=== PATIENT | female | born 1955 | race Caucasian/White ===

== ENCOUNTER 2019-01-26 20:54 | Inpatient (IN) | payer MEDICARE, OTHER ==
[2019-01-26] MEDS ORDERED: Ondansetron 4 MG/2 ML SDV IVPUSH ONE (21:37)
[2019-01-26] MEDS ORDERED: LORazepam 2 MG/ML SDV IVPUSH ONE (21:42)
--- NOTE | 2019-01-26 21:42 | EDM.PDOC ---
ED HPI GENERAL MEDICAL PROBLEM - General Chief Complaint: Gastrointestinal Problem Stated Complaint: VOMTING, WEAK Time Seen by Provider: 01/26/19 21:38 Source of Information: Reports: Patient History Limitations: Reports: No Limitations - History of Present Illness INITIAL COMMENTS - FREE TEXT/NARRATIVE: pt arrived with a history of vomiting continuously for the pat 24 hours. She is very weak and shakey. She is having alot of anxiety. She did not have any loose stools. She did have a bm last nite that was normal colored. She is thinking she may have eaten something thaat caused the vomiting. She did go out to eat last nite. She had a popover, chicken and a salad. Onset: Other ( started last nite and it was continuous during the nite. ) Duration: Hour(s): Location: Reports: Abdomen, Other ( she is not having abdomanal pain. ) Associated Symptoms: Reports: Nausea/Vomiting, Other (pt is very hyper and is shakey. 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: Endocrine/Metabolic History: Reports: Other (See Below) Other Endocrine/Metabolic History: "high blood sugar when gets sick." - Past Surgical History HEENT Surgical History: Reports: Cataract Surgery Social & Family History - Tobacco Use Smoking Status *Q: Never Smoker - Caffeine Use Caffeine Use: Reports: None - Recreational Drug Use Recreational Drug Use: No ED ROS GENERAL - Review of Systems Review Of Systems: See Below Constitutional: Reports: Weakness, Fatigue, Diaphoresis, Other (pt has been vomiting) HEENT: Reports: No Symptoms Respiratory: Reports: Shortness of Breath, Other (pt is feeling very anxious. ) Cardiovascular: Reports: No Symptoms Endocrine: Reports: No Symptoms GI/Abdominal: Reports: Other (pt does not have abdomanal pain. ) : Reports: No Symptoms Musculoskeletal: Reports: Hand Pain Skin: Reports: No Symptoms Neurological: Reports: No Symptoms, Other (pt is very shakey and is anxious. ) ED EXAM, GI/ABD - Physical Exam Exam: See Below Text/Narrative:: pt arrived with a history of being very weak. She has vomited since last pm. She did have some abdomanal cramping at first but is not having pain at this time. pt is very shakey and is feeling very weak. Exam Limited By: No Limitations General Appearance: Alert, Anxious, Moderate Distress, Other (pt is shakey and is feeling terrible. ) Ears: Normal TMs Nose: Normal Inspection Throat/Mouth: Normal Inspection Head: Atraumatic Neck: Normal Inspection Respiratory/Chest: No Respiratory Distress, Other (pt does have resp of 24. ) Cardiovascular: Regular Rate, Rhythm, Tachycardia GI/Abdominal Exam: Soft, Non-Tender (Female) Exam: Deferred Rectal (Female) Exam: Deferred Back Exam: Normal Inspection Extremities: Normal Inspection Neurological: Alert, Oriented, Normal Cognition, Other ( very anxious appearing. ) Psychiatric: Anxious Course - Vital Signs Last Recorded V/S: Last Vital Signs Temp 36.6 C 01/29/19 15:40 Pulse 76 01/29/19 15:40 Resp 16 01/29/19 15:40 BP 142/68 H 01/29/19 15:40 Pulse Ox 95 01/29/19 15:40 - Orders/Labs/Meds Orders: Medication Orders Dextrose (Glutose 15) 15 gm PO ONETIME PRN PRN Reason: Hypoglycemia Dextrose/Water (Dextrose 50% In Water) 50 ml IV ONETIME PRN PRN Reason: Hypoglycemia Enoxaparin Sodium (Lovenox) 40 mg SUBCUT DAILY [facility] Last Admin: 01/29/19 09:24 Dose: 40 mg Admin: 01/28/19 08:16 Dose: 40 mg Admin: 01/27/19 10:46 Dose: 40 mg Ceftriaxone Sodium 1 gm/ (Sodium Chloride) 50 mls @ 100 mls/hr IV Q24H [facility] Last Admin: 01/29/19 08:40 Dose: 100 mls/hr Insulin Glargine (Lantus Solostar) 12 units SUBCUT BEDTIME [facility] Insulin Human Lispro (Humalog) 0 unit SUBCUT QIDACANDBED [facility]; Protocol Lactobacillus Rhamnosus (Culturelle) 1 cap PO BID [facility] Last Admin: 01/29/19 09:24 Dose: 1 cap Lorazepam (Ativan) 0.5 mg IVPUSH Q2H PRN PRN Reason: Nausea Last Admin: 01/29/19 14:21 Dose: 0.5 mg Admin: 01/29/19 05:37 Dose: 0.5 mg Admin: 01/28/19 17:02 Dose: 0.5 mg Admin: 01/28/19 14:36 Dose: 0.5 mg Admin: 01/28/19 09:04 Dose: 0.5 mg Admin: 01/27/19 12:58 Dose: 0.5 mg Metformin HCl (Glucophage) 1,000 mg PO BIDMEALS [facility] Last Admin: 01/29/19 17:50 Dose: 1,000 mg Ondansetron HCl (Zofran) 4 mg IVPUSH Q4H PRN PRN Reason: Nausea/Vomiting Last Admin: 01/29/19 11:25 Dose: 4 mg Admin: 01/29/19 03:43 Dose: 4 mg Admin: 01/28/19 13:35 Dose: 4 mg Admin: 01/28/19 08:41 Dose: 4 mg Admin: 01/27/19 20:09 Dose: 4 mg Admin: 01/27/19 11:12 Dose: 4 mg Pantoprazole Sodium (Protonix) 40 mg PO BIDAC [facility] Last Admin: 01/29/19 17:50 Dose: 40 mg Admin: 01/29/19 08:22 Dose: Admin: 01/28/19 16:25 Dose: Not Given Admin: 01/28/19 08:15 Dose: 40 mg Admin: 01/27/19 16:30 Dose: 40 mg Sucralfate (Carafate) 1 gm PO QIDACANDBED [facility] Last Admin: 01/29/19 17:49 Dose: 1 gm Tamsulosin HCl (Flomax) 0.4 mg PO PCBREAKFAST [facility] Last Admin: 01/29/19 09:54 Dose: 0.4 mg Labs: Laboratory Tests 01/26/19 01/26/19 01/26/19 Range/Units 21:24 21:24 22:03 WBC 14.2 H (4.5-11.0) K/uL RBC 4.48 (3.30-5.50) M/uL Hgb 13.8 (12.0-15.0) g/dL Hct 42.3 (36.0-48.0) % MCV 94 (80-98) fL MCH 31 (27-31) pg MCHC 33 (32-36) % Plt Count 250 (150-400) K/uL Neut % (Auto) 90 H (36-66) % Lymph % (Auto) 7 L (24-44) % [place] % (Auto) 3 (2-6) % Eos % (Auto) 0 L (2-4) % Baso % (Auto) 0 (0-1) % VBG pH (7.350-7.450) Sodium 128 L (140-148) mmol/L Potassium 4.9 (3.6-5.2) mmol/L Chloride 89 L (100-108) mmol/L Carbon Dioxide 13 L (21-32) mmol/L Anion Gap 30.9 H (5.0-14.0) mmol/L BUN 51 H (7-18) mg/dL Creatinine 1.3 H (0.6-1.0) mg/dL Est Cr Clr Drug Dosing 43.25 mL/min Estimated GFR (MDRD) 41 L (>60) Glucose 797 H* (74-106) mg/dL Lactic Acid (0.4-2.0) mmol/L Calcium 9.9 (8.5-10.1) mg/dL Total Bilirubin 0.9 (0.2-1.0) mg/dL AST 8 L (15-37) U/L ALT 14 (12-78) U/L Alkaline Phosphatase 94 (46-116) U/L Troponin I < 0.017 (0.000-0.056) ng/mL Total Protein 7.8 (6.4-8.2) g/dL Albumin 3.5 (3.4-5.0) g/dL Globulin 4.3 H (2.3-3.5) g/dL Albumin/Globulin Ratio 0.8 L (1.2-2.2) Urine Color (YELLOW) Urine Appearance (CLEAR) Urine pH (5.0-8.0) Ur Specific [place] (1.008-1.030) Urine Protein (NEGATIVE) mg/dL Urine Glucose (UA) (NEGATIVE) mg/dL Urine Ketones (NEGATIVE) mg/dL Urine Occult Blood (NEGATIVE) Urine Nitrite (NEGATIVE) Urine Bilirubin (NEGATIVE) Urine Urobilinogen (0.2-1.0) EU/dL Ur Leukocyte Esterase (NEGATIVE) Urine RBC (0-5) Urine WBC (0-5) Ur Epithelial Cells Amorphous Sediment Urine Bacteria Urine Mucus 10/02/19 10/02/19 10/02/19 Range/Units 22:08 22:10 22:20 WBC (4.5-11.0) K/uL RBC (3.30-5.50) M/uL Hgb (12.0-15.0) g/dL Hct (36.0-48.0) % MCV (80-98) fL MCH (27-31) pg MCHC (32-36) % Plt Count (150-400) K/uL Neut % (Auto) (36-66) % Lymph % (Auto) (24-44) % [place] % (Auto) (2-6) % Eos % (Auto) (2-4) % Baso % (Auto) (0-1) % VBG pH 7.236 L (7.350-7.450) Sodium (140-148) mmol/L Potassium (3.6-5.2) mmol/L Chloride (100-108) mmol/L Carbon Dioxide (21-32) mmol/L Anion Gap (5.0-14.0) mmol/L BUN (7-18) mg/dL Creatinine (0.6-1.0) mg/dL Est Cr Clr Drug Dosing mL/min Estimated GFR (MDRD) (>60) Glucose (74-106) mg/dL Lactic Acid 3.6 H (0.4-2.0) mmol/L Calcium (8.5-10.1) mg/dL Total Bilirubin (0.2-1.0) mg/dL AST (15-37) U/L ALT (12-78) U/L Alkaline Phosphatase (46-116) U/L Troponin I (0.000-0.056) ng/mL Total Protein (6.4-8.2) g/dL Albumin (3.4-5.0) g/dL Globulin (2.3-3.5) g/dL Albumin/Globulin Ratio (1.2-2.2) Urine Color Yellow (YELLOW) Urine Appearance Cloudy A (CLEAR) Urine pH 5.0 (5.0-8.0) Ur Specific [place] 1.010 (1.008-1.030) Urine Protein Negative (NEGATIVE) mg/dL Urine Glucose (UA) 500 H (NEGATIVE) mg/dL Urine Ketones 80 H (NEGATIVE) mg/dL Urine Occult Blood Small H (NEGATIVE) Urine Nitrite Negative (NEGATIVE) Urine Bilirubin Small H (NEGATIVE) Urine Urobilinogen 0.2 (0.2-1.0) EU/dL Ur Leukocyte Esterase Negative (NEGATIVE) Urine RBC 0-5 (0-5) Urine WBC 0-5 (0-5) Ur Epithelial Cells Moderate Amorphous Sediment Few Urine Bacteria Few Urine Mucus Few Meds: Medications Generic Name Dose Route Start Last Admin Trade Name Freq PRN Reason Stop Dose Admin Dextrose 15 gm 01/27/19 08:50 Glutose 15 PO ONETIME PRN Hypoglycemia Dextrose/Water 50 ml 01/27/19 08:50 Dextrose 50% In Water IV ONETIME PRN Hypoglycemia Enoxaparin Sodium 40 mg 01/27/19 10:00 01/29/19 09:24 Lovenox SUBCUT 40 mg DAILY SARAH Administration Ceftriaxone Sodium 1 gm/ 50 mls @ 100 mls/hr 01/29/19 09:00 01/29/19 08:40 Sodium Chloride IV 100 mls/hr Q24H SARAH Administration Insulin Glargine 12 units 01/29/19 21:00 Lantus Solostar SUBCUT BEDTIME SARAH Insulin Human Lispro 0 unit 01/29/19 17:00 Humalog SUBCUT QIDACANDBED [facility] Protocol Lactobacillus Rhamnosus 1 cap 01/29/19 09:00 01/29/19 09:24 Culturelle PO 1 cap BID SARAH Administration Lorazepam 0.5 mg 01/27/19 12:50 01/29/19 14:21 Ativan IVPUSH 0.5 mg Q2H PRN Administration Nausea Metformin HCl 1,000 mg 01/29/19 17:00 01/29/19 17:50 Glucophage PO 1,000 mg BIDMEALS SARAH Administration Ondansetron HCl 4 mg 01/27/19 10:58 01/29/19 11:25 Zofran IVPUSH 4 mg Q4H PRN Administration Nausea/Vomiting Pantoprazole Sodium 40 mg 01/27/19 16:30 01/29/19 17:50 Protonix PO 40 mg BIDAC SARAH Administration Sucralfate 1 gm 01/29/19 17:00 01/29/19 17:49 Carafate PO 1 gm QIDACANDBED SARAH Administration Tamsulosin HCl 0.4 mg 01/29/19 09:00 01/29/19 09:54 Flomax PO 0.4 mg PCBREAKFAST SARAH Administration Discontinued Medications Generic Name Dose Route Start Last Admin Trade Name Get PRN Reason Stop Dose Admin Sodium Chloride 1,000 mls @ 999 mls/hr 01/26/19 21:45 01/27/19 04:02 Normal Saline IV 999 mls/hr ASDIRECTED SARAH Administration Insulin Human Regular 100 unit 100 mls @ 6.35 mls/hr 01/26/19 22:15 01/27/19 05:34 / Sodium Chloride IV Infused TITRATE SARAH Titration Protocol 0.1 UNITS/KG/HR Sodium Chloride 1,000 mls @ 999 mls/hr 01/26/19 22:15 01/26/19 23:06 Normal Saline IV 999 mls/hr ASDIRECTED SARAH Administration Dextrose/Sodium Chloride 1,000 mls @ 100 mls/hr 01/27/19 06:15 01/27/19 15:04 Dextrose 5%-Normal Saline IV 100 mls/hr ASDIRECTED SARAH Administration Sodium Chloride 1,000 mls @ 150 mls/hr 01/27/19 18:15 01/28/19 08:46 Normal Saline IV 150 mls/hr ASDIRECTED SARAH Administration Sodium Chloride 1,000 mls @ 50 mls/hr 01/28/19 10:30 01/29/19 00:59 Normal Saline IV 50 mls/hr ASDIRECTED SARAH Administration Sodium Chloride 74 mls @ 3 mls/sec 01/28/19 10:45 01/28/19 10:53 Normal Saline IV 01/28/19 10:46 3 mls/sec ASDIRECTED SARAH Administration Potassium Chloride 20 meq/ 0 mls @ 50 mls/hr 01/29/19 06:30 01/29/19 06:23 Premix IV 01/29/19 08:15 50 mls/hr Q2H SARAH Administration Potassium Chloride 20 meq/ 112 mls @ 56 mls/hr 01/29/19 08:30 01/29/19 09:06 Lidocaine HCl 2 ml/ Sodium IV 01/29/19 10:29 56 mls/hr Chloride ONETIME ONE Administration Insulin Glargine 20 units 01/27/19 21:00 01/28/19 21:38 Lantus Solostar SUBCUT 20 units BEDTIME SARAH Administration Insulin Human Lispro 0 unit 01/27/19 11:00 01/27/19 16:43 Humalog SUBCUT 6 units QIDACANDBED SARAH Administration Protocol Insulin Human Lispro 0 unit 01/27/19 18:00 01/29/19 14:46 Humalog SUBCUT Not Given Q4H [facility] Protocol Insulin Human Regular 4 unit 01/26/19 22:11 01/26/19 22:38 Humulin R IVPUSH 01/26/19 22:12 4 units ONETIME ONE Administration Iopamidol 100 ml 01/28/19 10:31 01/28/19 10:52 Isovue-300 (61%) IV 01/29/19 10:32 100 ml . DIRECTED PRN Administration RADIOLOGY EXAM Lidocaine HCl 5 ml 01/29/19 06:08 01/29/19 06:23 Xylocaine-Mpf 1% INJECT 01/29/19 06:09 5 ml ONETIME ONE Administration Lorazepam 0.5 mg 01/26/19 21:42 01/26/19 22:01 Ativan IVPUSH 01/26/19 21:43 0.5 mg ONETIME ONE Administration Lorazepam 0.5 mg 01/28/19 10:09 01/28/19 10:16 Ativan IVPUSH 01/28/19 10:10 0.5 mg ONETIME ONE Administration Metformin HCl 1,000 mg 01/27/19 09:30 01/28/19 08:16 Glucophage PO 1,000 mg BIDMEALS SARAH Administration Ondansetron HCl 4 mg 01/26/19 21:37 01/26/19 22:05 Zofran IVPUSH 01/26/19 21:38 4 mg ONETIME ONE Administration Pantoprazole Sodium 40 mg 01/26/19 22:31 01/26/19 22:54 Protonix Iv IVPUSH 01/26/19 22:32 40 mg ONETIME ONE Administration Pantoprazole Sodium 40 mg 01/26/19 23:00 01/26/19 23:21 Protonix Iv IV Not Given Q12H [facility] Potassium Chloride 40 meq 01/27/19 05:08 01/27/19 05:25 Klor-Con M20 PO 01/27/19 05:09 40 meq ONETIME ONE Administration Potassium Chloride 40 meq 01/28/19 10:00 01/28/19 11:14 Klor-Con M20 PO 01/28/19 10:01 40 meq ONETIME ONE Administration - Re-Assessments/Exams Free Text/Narrative Re-Assessment/Exam: 01/26/19 22:30 pt has a bs of 797 and she has a co2 of 12. Her bun and creatnine are elevated. Her emesis was dark looking according to her. b Departure - Departure Time of Disposition: 22:32 Disposition: Admitted As Inpatient 64 Condition: Fair Clinical Impression: Dehydration, Renal insufficiency Diabetic keto-acidosis Qualifiers: Diabetes mellitus type: type 2 Diabetes mellitus complication detail: without coma Qualified Code(s): E11.10 - Type 2 diabetes mellitus with ketoacidosis without coma - Discharge Information
[2019-01-26] MEDS: Sodium Chloride 0.9% 1,000 ML IV SCH (21:59)
[2019-01-26] MEDS ORDERED: Insulin Regular, Human 100 Units/ML 3 ML Vial IVPUSH ONE (22:11)
[2019-01-26] MEDS ORDERED: Sodium Chloride 0.9% 1,000 ML IV SCH (22:15)
[2019-01-26] MEDS ORDERED: Pantoprazole 40 MG Vial IVPUSH ONE (22:31)
[2019-01-26] MEDS ORDERED: Pantoprazole 40 MG Vial IV SCH (23:00)
--- NOTE | 2019-01-26 23:17 | PCM.HP.2 ---
H&P History of Present Illness - General Date of Service: 01/26/19 Admit Problem/Dx: Admission Diagnosis/Problem Admission Diagnosis/Problem Ketoacidosis in diabetes mellitus Source of Information: Patient, Family History Limitations: Reports: No Limitations - History of Present Illness Initial Comments - Free Text/Narative: Patient is a 63yo female with PMH of DMII that she controls normally with diet and exercise. She says she has been on metformin in the past but 'weans herself off' over time. She says she normally has blood sugars in the 110-120 range but when she gets sick her BG rises. Her and daughter believe that her BG rises and then she gets sick, but she disputes that her BG was high. She says she has no other medical problems and denies that she should be on medication for anything other than diabetes. She says she started having weakness and fatigue probably 3-5 days ago and that it worsened acutely yesterday with nausea and vomiting that started after going out for dinner yesterday. She says she started to be able to keep water down today but was feeling so ill her family brought her to the ER. 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: Endocrine/Metabolic History: Reports: Diabetes, Type II, Other (See Below) Other Endocrine/Metabolic History: "high blood sugar when gets sick." - Past Surgical History HEENT Surgical History: Reports: Cataract Surgery Social & Family History - Family History Family Medical History: Noncontributory - Tobacco Use Smoking Status *Q: Never Smoker - Caffeine Use Caffeine Use: Reports: None - Recreational Drug Use Recreational Drug Use: No H&P Review of Systems - Review of Systems: Review Of Systems: See Below General: Reports: Weakness, Fatigue, Diaphoresis HEENT: Reports: Headaches Pulmonary: Reports: No Symptoms Cardiovascular: Reports: No Symptoms Gastrointestinal: Reports: Nausea, Vomiting Genitourinary: Reports: Frequency Musculoskeletal: Reports: Other (weakness) Skin: Reports: No Symptoms Psychiatric: Reports: No Symptoms Neurological: Reports: Dizziness, Weakness Exam - Exam Exam: See Below - Vital Signs Vital Signs: Last Vital Signs Temp 36.6 C 01/26/19 21:12 Pulse 80 01/26/19 21:12 Resp 24 H 01/26/19 21:12 BP 96/56 L 01/26/19 21:12 Pulse Ox 97 01/26/19 21:12 Weight: 63.503 kg - Exam General: Alert, Oriented, Cooperative, Mild Distress HEENT: PERRLA, Conjunctiva Clear Neck: Supple, Trachea Midline Lungs: Clear to Auscultation, Normal Respiratory Effort Cardiovascular: Regular Rate, Regular Rhythm GI/Abdominal Exam: Normal Bowel Sounds, Soft, Non-Tender, No Organomegaly, No Distention, No Abnormal Bruit, No Mass (Female) Exam: Deferred Rectal (Female) Exam: Deferred Back Exam: Normal Inspection Extremities: Normal Inspection Skin: Warm, Dry, Intact Neurological: Cranial Nerves Intact Neuro Extensive - Mental Status: Alert, Oriented x3, Normal Mood/Affect, Normal Cognition, Memory Intact Neuro Extensive - Motor, Sensory, Reflexes: CN II-XII Intact, Normal Gait, Normal Reflexes Psychiatric: Alert, Normal Affect, Normal Mood - Patient Data Lab Results Last 24 hrs: Laboratory Results - last 24 hr 01/26/19 01/26/19 01/26/19 Range/Units 21:24 21:24 22:03 WBC 14.2 H (4.5-11.0) K/uL RBC 4.48 (3.30-5.50) M/uL Hgb 13.8 (12.0-15.0) g/dL Hct 42.3 (36.0-48.0) % MCV 94 (80-98) fL MCH 31 (27-31) pg MCHC 33 (32-36) % Plt Count 250 (150-400) K/uL Neut % (Auto) 90 H (36-66) % Lymph % (Auto) 7 L (24-44) % [place] % (Auto) 3 (2-6) % Eos % (Auto) 0 L (2-4) % Baso % (Auto) 0 (0-1) % VBG pH (7.350-7.450) Sodium 128 L (140-148) mmol/L Potassium 4.9 (3.6-5.2) mmol/L Chloride 89 L (100-108) mmol/L Carbon Dioxide 13 L (21-32) mmol/L Anion Gap 30.9 H (5.0-14.0) mmol/L BUN 51 H (7-18) mg/dL Creatinine 1.3 H (0.6-1.0) mg/dL Est Cr Clr Drug Dosing 43.25 mL/min Estimated GFR (MDRD) 41 L (>60) Glucose 797 H* (74-106) mg/dL Lactic Acid (0.4-2.0) mmol/L Calcium 9.9 (8.5-10.1) mg/dL Total Bilirubin 0.9 (0.2-1.0) mg/dL AST 8 L (15-37) U/L ALT 14 (12-78) U/L Alkaline Phosphatase 94 (46-116) U/L Troponin I < 0.017 (0.000-0.056) ng/mL Total Protein 7.8 (6.4-8.2) g/dL Albumin 3.5 (3.4-5.0) g/dL Globulin 4.3 H (2.3-3.5) g/dL Albumin/Globulin Ratio 0.8 L (1.2-2.2) Urine Color (YELLOW) Urine Appearance (CLEAR) Urine pH (5.0-8.0) Ur Specific [place] (1.008-1.030) Urine Protein (NEGATIVE) mg/dL Urine Glucose (UA) (NEGATIVE) mg/dL Urine Ketones (NEGATIVE) mg/dL Urine Occult Blood (NEGATIVE) Urine Nitrite (NEGATIVE) Urine Bilirubin (NEGATIVE) Urine Urobilinogen (0.2-1.0) EU/dL Ur Leukocyte Esterase (NEGATIVE) Urine RBC (0-5) Urine WBC (0-5) Ur Epithelial Cells Amorphous Sediment Urine Bacteria Urine Mucus 01/26/19 01/26/19 01/26/19 Range/Units 22:08 22:10 22:20 WBC (4.5-11.0) K/uL RBC (3.30-5.50) M/uL Hgb (12.0-15.0) g/dL Hct (36.0-48.0) % MCV (80-98) fL MCH (27-31) pg MCHC (32-36) % Plt Count (150-400) K/uL Neut % (Auto) (36-66) % Lymph % (Auto) (24-44) % [place] % (Auto) (2-6) % Eos % (Auto) (2-4) % Baso % (Auto) (0-1) % VBG pH 7.236 L (7.350-7.450) Sodium (140-148) mmol/L Potassium (3.6-5.2) mmol/L Chloride (100-108) mmol/L Carbon Dioxide (21-32) mmol/L Anion Gap (5.0-14.0) mmol/L BUN (7-18) mg/dL Creatinine (0.6-1.0) mg/dL Est Cr Clr Drug Dosing mL/min Estimated GFR (MDRD) (>60) Glucose (74-106) mg/dL Lactic Acid 3.6 H (0.4-2.0) mmol/L Calcium (8.5-10.1) mg/dL Total Bilirubin (0.2-1.0) mg/dL AST (15-37) U/L ALT (12-78) U/L Alkaline Phosphatase (46-116) U/L Troponin I (0.000-0.056) ng/mL Total Protein (6.4-8.2) g/dL Albumin (3.4-5.0) g/dL Globulin (2.3-3.5) g/dL Albumin/Globulin Ratio (1.2-2.2) Urine Color Yellow (YELLOW) Urine Appearance Cloudy A (CLEAR) Urine pH 5.0 (5.0-8.0) Ur Specific [place] 1.010 (1.008-1.030) Urine Protein Negative (NEGATIVE) mg/dL Urine Glucose (UA) 500 H (NEGATIVE) mg/dL Urine Ketones 80 H (NEGATIVE) mg/dL Urine Occult Blood Small H (NEGATIVE) Urine Nitrite Negative (NEGATIVE) Urine Bilirubin Small H (NEGATIVE) Urine Urobilinogen 0.2 (0.2-1.0) EU/dL Ur Leukocyte Esterase Negative (NEGATIVE) Urine RBC 0-5 (0-5) Urine WBC 0-5 (0-5) Ur Epithelial Cells Moderate Amorphous Sediment Few Urine Bacteria Few Urine Mucus Few Result Diagrams: 01/26/19 21:24 01/26/19 21:24 EKG INTERPRETATION EKG Date: 01/26/19 Time: 22:28 Rhythm: NSR Rate (Beats/Min): 81 [place]: Normal P-Wave: Present QRS: Normal ST-T: Normal QT: Normal Comparison: NA - No Prior EKG EKG Interpretation Comments: Normal EKG *Q Meaningful Use (ADM) - VTE Risk Assess *Q Each Risk Factor Represents 1 Point: None Total Score 1 Point Risk Factors: 0 Each Risk Factor Represents 2 Points: Age 60 - 74 Years Total Score 2 Point Risk Factors: 2 - Problem List (1) Diabetic keto-acidosis SNOMED Code(s): 402618939, 209526142 ICD Code: E11.10 - TYPE 2 DIABETES MELLITUS WITH KETOACIDOSIS WITHOUT COMA Status: Acute Current Visit: Yes Onset Date: ~01/25/19 Qualifiers: Diabetes mellitus type: type 2 Diabetes mellitus complication detail: without coma Qualified Code(s): E11.10 - Type 2 diabetes mellitus with ketoacidosis without coma (2) Dehydration SNOMED Code(s): 59909796 ICD Code: E86.0 - DEHYDRATION Status: Acute Current Visit: Yes Onset Date: ~01/25/19 (3) Renal insufficiency SNOMED Code(s): 780560464, 580595795 ICD Code: N28.9 - DISORDER OF KIDNEY AND URETER, UNSPECIFIED Status: Acute Current Visit: Yes Onset Date: ~01/25/19 Problem List Initiated/Reviewed/Updated: Yes Orders Last 24hrs: Active Orders 24 hr Category Date Time Status Patient Status Manage Transfer [TRANSFER] Routine ADT 01/26/19 23:03 Active Patient Status [ADT] Routine ADT 01/26/19 22:54 Active Cardiac Monitoring [RC] CONTINUOUS Care 01/26/19 22:54 Active EKG Documentation Completion [RC] ASDIRECTED Care 01/26/19 22:03 Active Intake and Output [RC] QSHIFT Care 01/26/19 22:54 Active May Shower [RC] ASDIRECTED Care 01/26/19 22:53 Active Oxygen Therapy [RC] PRN Care 01/26/19 22:54 Active Up With Assistance [RC] ASDIRECTED Care 01/26/19 22:53 Active VTE/DVT Education [RC] Per Unit Routine Care 01/26/19 22:54 Active Vital Signs [RC] Q4H Care 01/26/19 22:54 Active Insulin Regular, Human [HumuLIN R] 100 unit Med 01/26/19 22:15 Active Sodium Chloride 0.9% [Normal Saline] 99 ml IV TITRATE Pantoprazole [ProTONIX IV] Med 01/26/19 23:00 Ordered 40 mg IV Q12H Sodium Chloride 0.9% [Normal Saline] 1,000 ml Med 01/26/19 21:45 Active IV ASDIRECTED Sodium Chloride 0.9% [Normal Saline] 1,000 ml Med 01/26/19 22:15 Active IV ASDIRECTED Sequential Compression Device [OM.PC] Per Unit Routine Oth 01/26/19 22:55 Ordered Resuscitation Status Routine Resus Stat 01/26/19 22:53 Ordered EKG 12 Lead [EK] Routine Ther 01/26/19 22:03 Ordered Medication Orders Sodium Chloride (Normal Saline) 1,000 mls @ 999 mls/hr IV ASDIRECTED SARAH Last Admin: 01/26/19 21:59 Dose: 999 mls/hr Insulin Human Regular 100 unit (/ Sodium Chloride) 100 mls @ 6.35 mls/hr IV TITRATE SARAH; Protocol Last Admin: 01/26/19 23:01 Dose: 0.1 units/kg/hr, 6.35 mls/hr Sodium Chloride (Normal Saline) 1,000 mls @ 999 mls/hr IV ASDIRECTED SARAH Last Admin: 01/26/19 23:06 Dose: 999 mls/hr Pantoprazole Sodium (Protonix Iv) 40 mg IV Q12H SARAH Assessment/Plan Comment:: Will titrate BG down to 250, will repeat BG every 1-2hrs, will repeat lactate, BMP, VBG in 3-4hrs. Once blood glucose reaches 250 stop drip, and transition to SQ insulin per sliding scale, and switch NS to 1/2NS D5 until patient is able to take PO with BG 1-4hr as needed per protocol. - Mortality Measure Prognosis:: Good
[2019-01-27] MEDS: Sodium Chloride 0.9% 1,000 ML IV SCH ×6 (00:18→19:41)
[2019-01-27] MEDS ORDERED: Potassium Chloride 20 MEQ Tab.ER PO ONE (05:08)
[2019-01-27] MEDS: Dextrose 5%-0.9% NaCl 1,000 ML IV SCH ×2 (07:20→15:04)
[2019-01-27 07:25] LABS: HEMOGLOBIN A1C 14.8 % (4.5-6.2)
[2019-01-27] MEDS ORDERED: 50% Dextrose in Water 50 ML Syringe IV PRN (08:50)
[2019-01-27] MEDS ORDERED: Glucose Gel 15 GM in 37.5 GM Tube PO PRN (08:50)
[2019-01-27] MEDS: metFORMIN 500 MG Tab PO SCH ×2 (09:41→16:30)
--- NOTE | 2019-01-27 10:02 | PCM.PN ---
- General Info Date of Service: 01/27/19 Subjective Update: Ms. Milner is a 63-year-old woman who was admitted through the emergency department last night by Dr. Brizuela. She presented with nausea, vomiting, weakness, secondary to marked hyperglycemia and diabetic ketoacidosis. She has a long-standing history of type 2 diabetes mellitus with poor control. Previously treated with metformin and insulin, which she has not taken for some time. HGB A1c this morning found to be markedly elevated at 14.8. She is been treated with IV insulin through the night, anion gap has almost normalized and glucose levels are under good control. She feels significantly improved with no further nausea or vomiting. Functional Status: Reports: Tolerating Diet, Urinating - Review of Systems General: Reports: Weakness. Denies: Fever, Chills Pulmonary: Reports: No Symptoms Cardiovascular: Reports: No Symptoms Gastrointestinal: Reports: No Symptoms - Patient Data Vitals - Most Recent: Last Vital Signs Temp 97.8 F 01/26/19 21:12 Pulse 82 01/27/19 02:41 Resp 14 01/27/19 02:41 BP 91/48 L 01/27/19 02:41 Pulse Ox 96 01/27/19 02:41 Weight - Most Recent: 163 lb 15.995 oz I&O - Last 24 Hours: Intake & Output 01/26/19 01/27/19 01/27/19 22:59 06:59 14:59 Intake Total 5786 Balance 5786 Lab Results Last 24 Hours: Laboratory Results - last 24 hr 01/26/19 01/26/19 01/26/19 Range/Units 21:24 21:24 22:03 WBC 14.2 H (4.5-11.0) K/uL RBC 4.48 (3.30-5.50) M/uL Hgb 13.8 (12.0-15.0) g/dL Hct 42.3 (36.0-48.0) % MCV 94 (80-98) fL MCH 31 (27-31) pg MCHC 33 (32-36) % Plt Count 250 (150-400) K/uL Neut % (Auto) 90 H (36-66) % Lymph % (Auto) 7 L (24-44) % Wetzel % (Auto) 3 (2-6) % Eos % (Auto) 0 L (2-4) % Baso % (Auto) 0 (0-1) % ABG Hemoglobin (12.0-16.0) g/dL ABG Oxyhemoglobin % ABG Carboxyhemoglobin (0.0-1.6) % ABG Methemoglobin % VBG pH (7.350-7.450) VBG pCO2 mm/Hg VBG pO2 mm/Hg VBG HCO3 mmol/L VBG Total CO2 mmol/L VBG O2 Saturation VBG O2 Content %vol VBG Base Excess mm/L O2 Delivery Device Sodium 128 L (140-148) mmol/L Potassium 4.9 (3.6-5.2) mmol/L Chloride 89 L (100-108) mmol/L Carbon Dioxide 13 L (21-32) mmol/L Anion Gap 30.9 H (5.0-14.0) mmol/L BUN 51 H (7-18) mg/dL Creatinine 1.3 H (0.6-1.0) mg/dL Est Cr Clr Drug Dosing 43.25 mL/min Estimated GFR (MDRD) 41 L (>60) Glucose 797 H* (74-106) mg/dL Hemoglobin A1c (4.5-6.2) % Lactic Acid (0.4-2.0) mmol/L Calcium 9.9 (8.5-10.1) mg/dL Total Bilirubin 0.9 (0.2-1.0) mg/dL AST 8 L (15-37) U/L ALT 14 (12-78) U/L Alkaline Phosphatase 94 (46-116) U/L Troponin I < 0.017 (0.000-0.056) ng/mL Total Protein 7.8 (6.4-8.2) g/dL Albumin 3.5 (3.4-5.0) g/dL Globulin 4.3 H (2.3-3.5) g/dL Albumin/Globulin Ratio 0.8 L (1.2-2.2) Urine Color (YELLOW) Urine Appearance (CLEAR) Urine pH (5.0-8.0) Ur Specific Roslyn (1.008-1.030) Urine Protein (NEGATIVE) mg/dL Urine Glucose (UA) (NEGATIVE) mg/dL Urine Ketones (NEGATIVE) mg/dL Urine Occult Blood (NEGATIVE) Urine Nitrite (NEGATIVE) Urine Bilirubin (NEGATIVE) Urine Urobilinogen (0.2-1.0) EU/dL Ur Leukocyte Esterase (NEGATIVE) Urine RBC (0-5) Urine WBC (0-5) Ur Epithelial Cells Amorphous Sediment Urine Bacteria Urine Mucus 01/26/19 01/26/19 01/26/19 Range/Units 22:08 22:10 22:20 WBC (4.5-11.0) K/uL RBC (3.30-5.50) M/uL Hgb (12.0-15.0) g/dL Hct (36.0-48.0) % MCV (80-98) fL MCH (27-31) pg MCHC (32-36) % Plt Count (150-400) K/uL Neut % (Auto) (36-66) % Lymph % (Auto) (24-44) % Wetzel % (Auto) (2-6) % Eos % (Auto) (2-4) % Baso % (Auto) (0-1) % ABG Hemoglobin (12.0-16.0) g/dL ABG Oxyhemoglobin % ABG Carboxyhemoglobin (0.0-1.6) % ABG Methemoglobin % VBG pH 7.236 L (7.350-7.450) VBG pCO2 mm/Hg VBG pO2 mm/Hg VBG HCO3 mmol/L VBG Total CO2 mmol/L VBG O2 Saturation VBG O2 Content %vol VBG Base Excess mm/L O2 Delivery Device Sodium (140-148) mmol/L Potassium (3.6-5.2) mmol/L Chloride (100-108) mmol/L Carbon Dioxide (21-32) mmol/L Anion Gap (5.0-14.0) mmol/L BUN (7-18) mg/dL Creatinine (0.6-1.0) mg/dL Est Cr Clr Drug Dosing mL/min Estimated GFR (MDRD) (>60) Glucose (74-106) mg/dL Hemoglobin A1c (4.5-6.2) % Lactic Acid 3.6 H (0.4-2.0) mmol/L Calcium (8.5-10.1) mg/dL Total Bilirubin (0.2-1.0) mg/dL AST (15-37) U/L ALT (12-78) U/L Alkaline Phosphatase (46-116) U/L Troponin I (0.000-0.056) ng/mL Total Protein (6.4-8.2) g/dL Albumin (3.4-5.0) g/dL Globulin (2.3-3.5) g/dL Albumin/Globulin Ratio (1.2-2.2) Urine Color Yellow (YELLOW) Urine Appearance Cloudy A (CLEAR) Urine pH 5.0 (5.0-8.0) Ur Specific Roslyn 1.010 (1.008-1.030) Urine Protein Negative (NEGATIVE) mg/dL Urine Glucose (UA) 500 H (NEGATIVE) mg/dL Urine Ketones 80 H (NEGATIVE) mg/dL Urine Occult Blood Small H (NEGATIVE) Urine Nitrite Negative (NEGATIVE) Urine Bilirubin Small H (NEGATIVE) Urine Urobilinogen 0.2 (0.2-1.0) EU/dL Ur Leukocyte Esterase Negative (NEGATIVE) Urine RBC 0-5 (0-5) Urine WBC 0-5 (0-5) Ur Epithelial Cells Moderate Amorphous Sediment Few Urine Bacteria Few Urine Mucus Few 01/27/19 01/27/19 01/27/19 Range/Units 04:21 04:21 04:21 WBC (4.5-11.0) K/uL RBC (3.30-5.50) M/uL Hgb (12.0-15.0) g/dL Hct (36.0-48.0) % MCV (80-98) fL MCH (27-31) pg MCHC (32-36) % Plt Count (150-400) K/uL Neut % (Auto) (36-66) % Lymph % (Auto) (24-44) % Wetzel % (Auto) (2-6) % Eos % (Auto) (2-4) % Baso % (Auto) (0-1) % ABG Hemoglobin 10.6 L (12.0-16.0) g/dL ABG Oxyhemoglobin 60.8 % ABG Carboxyhemoglobin 2.1 H (0.0-1.6) % ABG Methemoglobin 0.8 % VBG pH 7.335 L (7.350-7.450) VBG pCO2 36.5 mm/Hg VBG pO2 35.0 mm/Hg VBG HCO3 19.0 mmol/L VBG Total CO2 17.9 mmol/L VBG O2 Saturation 62.6 VBG O2 Content 9.0 %vol VBG Base Excess -5.8 mm/L O2 Delivery Device Room air Sodium 139 L (140-148) mmol/L Potassium 3.3 L (3.6-5.2) mmol/L Chloride 109 H (100-108) mmol/L Carbon Dioxide 20 L (21-32) mmol/L Anion Gap 13.3 (5.0-14.0) mmol/L BUN 43 H (7-18) mg/dL Creatinine 1.0 (0.6-1.0) mg/dL Est Cr Clr Drug Dosing 56.23 mL/min Estimated GFR (MDRD) 56 L (>60) Glucose 238 H (74-106) mg/dL Hemoglobin A1c (4.5-6.2) % Lactic Acid 3.3 H (0.4-2.0) mmol/L Calcium 7.9 L D (8.5-10.1) mg/dL Total Bilirubin (0.2-1.0) mg/dL AST (15-37) U/L ALT (12-78) U/L Alkaline Phosphatase (46-116) U/L Troponin I (0.000-0.056) ng/mL Total Protein (6.4-8.2) g/dL Albumin (3.4-5.0) g/dL Globulin (2.3-3.5) g/dL Albumin/Globulin Ratio (1.2-2.2) Urine Color (YELLOW) Urine Appearance (CLEAR) Urine pH (5.0-8.0) Ur Specific Roslyn (1.008-1.030) Urine Protein (NEGATIVE) mg/dL Urine Glucose (UA) (NEGATIVE) mg/dL Urine Ketones (NEGATIVE) mg/dL Urine Occult Blood (NEGATIVE) Urine Nitrite (NEGATIVE) Urine Bilirubin (NEGATIVE) Urine Urobilinogen (0.2-1.0) EU/dL Ur Leukocyte Esterase (NEGATIVE) Urine RBC (0-5) Urine WBC (0-5) Ur Epithelial Cells Amorphous Sediment Urine Bacteria Urine Mucus 01/27/19 Range/Units 06:06 WBC (4.5-11.0) K/uL RBC (3.30-5.50) M/uL Hgb (12.0-15.0) g/dL Hct (36.0-48.0) % MCV (80-98) fL MCH (27-31) pg MCHC (32-36) % Plt Count (150-400) K/uL Neut % (Auto) (36-66) % Lymph % (Auto) (24-44) % Wetzel % (Auto) (2-6) % Eos % (Auto) (2-4) % Baso % (Auto) (0-1) % ABG Hemoglobin (12.0-16.0) g/dL ABG Oxyhemoglobin % ABG Carboxyhemoglobin (0.0-1.6) % ABG Methemoglobin % VBG pH (7.350-7.450) VBG pCO2 mm/Hg VBG pO2 mm/Hg VBG HCO3 mmol/L VBG Total CO2 mmol/L VBG O2 Saturation VBG O2 Content %vol VBG Base Excess mm/L O2 Delivery Device Sodium (140-148) mmol/L Potassium (3.6-5.2) mmol/L Chloride (100-108) mmol/L Carbon Dioxide (21-32) mmol/L Anion Gap (5.0-14.0) mmol/L BUN (7-18) mg/dL Creatinine (0.6-1.0) mg/dL Est Cr Clr Drug Dosing mL/min Estimated GFR (MDRD) (>60) Glucose (74-106) mg/dL Hemoglobin A1c 14.8 H (4.5-6.2) % Lactic Acid (0.4-2.0) mmol/L Calcium (8.5-10.1) mg/dL Total Bilirubin (0.2-1.0) mg/dL AST (15-37) U/L ALT (12-78) U/L Alkaline Phosphatase (46-116) U/L Troponin I (0.000-0.056) ng/mL Total Protein (6.4-8.2) g/dL Albumin (3.4-5.0) g/dL Globulin (2.3-3.5) g/dL Albumin/Globulin Ratio (1.2-2.2) Urine Color (YELLOW) Urine Appearance (CLEAR) Urine pH (5.0-8.0) Ur Specific Roslyn (1.008-1.030) Urine Protein (NEGATIVE) mg/dL Urine Glucose (UA) (NEGATIVE) mg/dL Urine Ketones (NEGATIVE) mg/dL Urine Occult Blood (NEGATIVE) Urine Nitrite (NEGATIVE) Urine Bilirubin (NEGATIVE) Urine Urobilinogen (0.2-1.0) EU/dL Ur Leukocyte Esterase (NEGATIVE) Urine RBC (0-5) Urine WBC (0-5) Ur Epithelial Cells Amorphous Sediment Urine Bacteria Urine Mucus Med Orders - Current: Current Medications Dextrose (Glutose 15) 15 gm PO ONETIME PRN PRN Reason: Hypoglycemia Dextrose/Water (Dextrose 50% In Water) 50 ml IV ONETIME PRN PRN Reason: Hypoglycemia Dextrose/Sodium Chloride (Dextrose 5%-Normal Saline) 1,000 mls @ 100 mls/hr IV ASDIRECTED [facility] Insulin Human Lispro (Humalog) 0 unit SUBCUT QIDACANDBED [facility]; Protocol Metformin HCl (Glucophage) 1,000 mg PO BIDMEALS [facility] Last Admin: 01/27/19 09:41 Dose: 1,000 mg Pantoprazole Sodium (Protonix) 40 mg PO BIDAC [facility] Discontinued Medications Sodium Chloride (Normal Saline) 1,000 mls @ 999 mls/hr IV ASDIRECTED [facility] Last Admin: 01/27/19 04:02 Dose: 999 mls/hr Insulin Human Regular 100 unit (/ Sodium Chloride) 100 mls @ 6.35 mls/hr IV TITRATE [facility]; Protocol Last Titration: 01/27/19 05:34 Dose: Infused Sodium Chloride (Normal Saline) 1,000 mls @ 999 mls/hr IV ASDIRECTED [facility] Last Admin: 01/26/19 23:06 Dose: 999 mls/hr Insulin Human Regular (Humulin R) 4 unit IVPUSH ONETIME ONE Stop: 01/26/19 22:12 Last Admin: 01/26/19 22:38 Dose: 4 units Lorazepam (Ativan) 0.5 mg IVPUSH ONETIME ONE Stop: 01/26/19 21:43 Last Admin: 01/26/19 22:01 Dose: 0.5 mg Ondansetron HCl (Zofran) 4 mg IVPUSH ONETIME ONE Stop: 01/26/19 21:38 Last Admin: 01/26/19 22:05 Dose: 4 mg Pantoprazole Sodium (Protonix Iv) 40 mg IVPUSH ONETIME ONE Stop: 01/26/19 22:32 Last Admin: 01/26/19 22:54 Dose: 40 mg Pantoprazole Sodium (Protonix Iv) 40 mg IV Q12H [facility] Last Admin: 01/26/19 23:21 Dose: Not Given Potassium Chloride (Klor-Con M20) 40 meq PO ONETIME ONE Stop: 01/27/19 05:09 Last Admin: 01/27/19 05:25 Dose: 40 meq - Exam Quality Assessment: DVT Prophylaxis General: Alert, Oriented, Cooperative, No Acute Distress Lungs: Clear to Auscultation, Normal Respiratory Effort Cardiovascular: Regular Rate, Regular Rhythm, No Murmurs GI/Abdominal Exam: Soft, Non-Tender, No Organomegaly, No Distention Extremities: Non-Tender, No Pedal Edema - Problem List Review Problem List Initiated/Reviewed/Updated: Yes - My Orders Last 24 Hours: My Active Orders 01/27/19 08:50 Blood Glucose Check, Bedside [RC] QIDACANDBED Communication Order [RC] STAT Diabetes Education [RC] Click to Edit Notify Provider [RC] PRN Dextrose 50% in Water 50 ml IV ONETIME PRN Dextrose [Glutose 15] 15 gm PO ONETIME PRN 01/27/19 09:30 metFORMIN [Glucophage] 1,000 mg PO BIDMEALS 01/27/19 11:00 Insulin Lispro [HumaLOG] See Protocol SUBCUT QIDACANDBED 01/27/19 16:30 GLUCOSE POC LAB TO COLLECT [POC] QIDACANDBED Pantoprazole [ProTONIX] 40 mg PO BIDAC 01/27/19 17:00 BASIC METABOLIC PANEL,BMP [CHEM] Stat LACTIC ACID [CHEM] Stat MAGNESIUM [CHEM] Stat 01/27/19 21:00 GLUCOSE POC LAB TO COLLECT [POC] QIDACANDBED 01/27/19 Breakfast Consistent Carbohydrate Diet [DIET] 01/28/19 05:00 BASIC METABOLIC PANEL,BMP [CHEM] Timed CBC WITH AUTO DIFF [HEME] Timed LACTIC ACID [CHEM] Timed MAGNESIUM [CHEM] Timed 01/28/19 07:30 GLUCOSE POC LAB TO COLLECT [POC] QIDACANDBED 01/28/19 11:30 GLUCOSE POC LAB TO COLLECT [POC] QIDACANDBED 01/28/19 16:30 GLUCOSE POC LAB TO COLLECT [POC] QIDACANDBED 01/28/19 21:00 GLUCOSE POC LAB TO COLLECT [POC] QIDACANDBED 01/29/19 07:30 GLUCOSE POC LAB TO COLLECT [POC] QIDACANDBED 01/29/19 11:30 GLUCOSE POC LAB TO COLLECT [POC] QIDACANDBED 01/29/19 16:30 GLUCOSE POC LAB TO COLLECT [POC] QIDACANDBED 01/29/19 21:00 GLUCOSE POC LAB TO COLLECT [POC] QIDACANDBED 01/30/19 07:30 GLUCOSE POC LAB TO COLLECT [POC] QIDACANDBED 01/30/19 11:30 GLUCOSE POC LAB TO COLLECT [POC] QIDACANDBED 01/30/19 16:30 GLUCOSE POC LAB TO COLLECT [POC] QIDACANDBED 01/30/19 21:00 GLUCOSE POC LAB TO COLLECT [POC] QIDACANDBED 01/31/19 07:30 GLUCOSE POC LAB TO COLLECT [POC] QIDACANDBED 01/31/19 11:30 GLUCOSE POC LAB TO COLLECT [POC] QIDACANDBED 01/31/19 16:30 GLUCOSE POC LAB TO COLLECT [POC] QIDACANDBED 01/31/19 21:00 GLUCOSE POC LAB TO COLLECT [POC] QIDACANDBED 02/01/19 07:30 GLUCOSE POC LAB TO COLLECT [POC] QIDACANDBED - Plan Plan:: ASSESSMENT AND PLAN DIABETIC [id number] history of poorly controlled type 2 diabetes mellitus. Developed nausea and vomiting with progressive weakness and underlying dehydration. -Discontinue IV insulin -Metformin 1000 mg by mouth twice daily -4 times a day glucometers -Moderate dose sliding scale Humalog -Diabetes education -Consider addition of long-acting insulin, depending on glucose levels over the next 24 hours LACTIC ACIDOSIS-likely secondary to dehydration, no evidence of underlying infection or sepsis -IV fluids -Recheck lactic acid level later today and in a.m. UNCONTROLLED TYPE 2 DIABETES MELLITUS-hemoglobin A1c elevated at 14.8 -Management as above MAINTENANCE ISSUES -DVT prophylaxis; Lovenox 40 mg subcutaneous daily -GI prophylaxis; Protonix 40 mg twice daily -Kim catheter; not indicated -Nutrition; consistent carb diet -Nicotine dependence; not required CODE STATUS-FULL CODE ADMISSION STATUS-patient will be admitted to inpatient status, expect at least a 2 night hospital stay for evaluation and management of problems as outlined above. At the time of this admission I do not reasonably expected evaluation and management of this problem will require more than a 96 hour hospital stay. DISPOSITION-anticipate discharge to home after the hospital stay. PRIMARY CARE PROVIDER-patient is from [facility] and receives her health care there
[2019-01-27] MEDS: Enoxaparin 40 MG/0.4 ML Syringe SUBCUT SCH (10:46)
[2019-01-27] MEDS: Ondansetron 4 MG/2 ML SDV IVPUSH PRN ×2 (11:12→20:09)
[2019-01-27] MEDS: Insulin Lispro 100 Unit/ML 3 ML KwikPen SUBCUT SCH ×4 (11:44→21:48)
[2019-01-27] MEDS: LORazepam 2 MG/ML SDV IVPUSH PRN (12:58)
[2019-01-27] MEDS: Pantoprazole 40 MG Tab.CR PO SCH (16:30)
[2019-01-27] MEDS: Insulin Glargine,Human Rec. Analog 100 Units/ML 3 ML Pen SUBCUT SCH (21:47)
[2019-01-28] MEDS: Insulin Lispro 100 Unit/ML 3 ML KwikPen SUBCUT SCH ×6 (02:03→21:37)
[2019-01-28] MEDS: Sodium Chloride 0.9% 1,000 ML IV SCH ×2 (02:36→08:46)
[2019-01-28] MEDS: Pantoprazole 40 MG Tab.CR PO SCH ×2 (08:15→16:25)
[2019-01-28] MEDS: Enoxaparin 40 MG/0.4 ML Syringe SUBCUT SCH (08:16)
[2019-01-28] MEDS: metFORMIN 500 MG Tab PO SCH (08:16)
[2019-01-28] MEDS: Ondansetron 4 MG/2 ML SDV IVPUSH PRN ×2 (08:41→13:35)
[2019-01-28] MEDS: LORazepam 2 MG/ML SDV IVPUSH PRN ×3 (09:04→17:02)
[2019-01-28] MEDS ORDERED: Potassium Chloride 20 MEQ Tab.ER PO ONE (10:00)
[2019-01-28] MEDS ORDERED: LORazepam 2 MG/ML SDV IVPUSH ONE (10:09)
--- NOTE | 2019-01-28 10:26 | PCM.PN ---
- General Info Date of Service: 01/28/19 Subjective Update: Ms. Milner is had ongoing difficulty with nausea and mild abdominal pain in the right abdomen. Ketoacidosis has resolved and blood sugars have come under better control. Oral intake has been negligible because of ongoing nausea. Functional Status: Reports: Ambulating, Urinating. Denies: Tolerating Diet - Review of Systems General: Reports: Weakness. Denies: Fever, Chills Pulmonary: Reports: No Symptoms Cardiovascular: Reports: No Symptoms Gastrointestinal: Reports: Abdominal Pain, Nausea. Denies: Diarrhea, Difficulty Swallowing, Vomiting Genitourinary: Reports: No Symptoms - Patient Data Vitals - Most Recent: Last Vital Signs Temp 97.7 F 01/28/19 08:00 Pulse 75 01/28/19 08:00 Resp 14 01/28/19 08:00 BP 130/62 01/28/19 08:00 Pulse Ox 99 01/28/19 08:00 Weight - Most Recent: 163 lb 15.995 oz I&O - Last 24 Hours: Intake & Output 01/27/19 01/28/19 01/28/19 22:59 06:59 14:59 Intake Total 289 1601 Output Total 350 450 Balance -61 1151 Lab Results Last 24 Hours: Laboratory Results - last 24 hr 01/27/19 01/27/19 01/28/19 Range/Units 16:51 16:51 05:30 WBC 11.4 H (4.5-11.0) K/uL RBC 3.13 L (3.30-5.50) M/uL Hgb 9.8 L D (12.0-15.0) g/dL Hct 29.8 L (36.0-48.0) % MCV 95 (80-98) fL MCH 31 (27-31) pg MCHC 33 (32-36) % Plt Count 155 (150-400) K/uL Neut % (Auto) 71 H (36-66) % Lymph % (Auto) 21 L (24-44) % [place]ion % (Auto) 7 H (2-6) % Eos % (Auto) 0 L (2-4) % Baso % (Auto) 0 (0-1) % Sodium 139 L (140-148) mmol/L Potassium 4.3 (3.6-5.2) mmol/L Chloride 108 (100-108) mmol/L Carbon Dioxide 17 L (21-32) mmol/L Anion Gap 18.3 H (5.0-14.0) mmol/L BUN 29 H (7-18) mg/dL Creatinine 0.7 (0.6-1.0) mg/dL Est Cr Clr Drug Dosing 81.15 mL/min Estimated GFR (MDRD) > 60 (>60) Glucose 324 H (74-106) mg/dL Lactic Acid 1.6 (0.4-2.0) mmol/L Calcium 8.3 L (8.5-10.1) mg/dL Magnesium 1.8 (1.8-2.4) mg/dL 01/28/19 01/28/19 Range/Units 05:30 05:30 WBC (4.5-11.0) K/uL RBC (3.30-5.50) M/uL Hgb (12.0-15.0) g/dL Hct (36.0-48.0) % MCV (80-98) fL MCH (27-31) pg MCHC (32-36) % Plt Count (150-400) K/uL Neut % (Auto) (36-66) % Lymph % (Auto) (24-44) % Irion % (Auto) (2-6) % Eos % (Auto) (2-4) % Baso % (Auto) (0-1) % Sodium 143 (140-148) mmol/L Potassium 3.4 L (3.6-5.2) mmol/L Chloride 113 H (100-108) mmol/L Carbon Dioxide 21 (21-32) mmol/L Anion Gap 12.4 (5.0-14.0) mmol/L BUN 20 H (7-18) mg/dL Creatinine 0.7 (0.6-1.0) mg/dL Est Cr Clr Drug Dosing 81.15 mL/min Estimated GFR (MDRD) > 60 (>60) Glucose 193 H (74-106) mg/dL Lactic Acid 1.1 (0.4-2.0) mmol/L Calcium 8.2 L (8.5-10.1) mg/dL Magnesium 1.8 (1.8-2.4) mg/dL Med Orders - Current: Current Medications Dextrose (Glutose 15) 15 gm PO ONETIME PRN PRN Reason: Hypoglycemia Dextrose/Water (Dextrose 50% In Water) 50 ml IV ONETIME PRN PRN Reason: Hypoglycemia Enoxaparin Sodium (Lovenox) 40 mg SUBCUT DAILY [facility] Last Admin: 01/28/19 08:16 Dose: 40 mg Sodium Chloride (Normal Saline) 1,000 mls @ 50 mls/hr IV ASDIRECTED [facility] Insulin Glargine (Lantus Solostar) 20 units SUBCUT BEDTIME [facility] Last Admin: 01/27/19 21:47 Dose: 20 units Insulin Human Lispro (Humalog) 0 unit SUBCUT Q4H [facility]; Protocol Last Admin: 01/28/19 09:57 Dose: 6 units Lorazepam (Ativan) 0.5 mg IVPUSH Q2H PRN PRN Reason: Nausea Last Admin: 01/28/19 09:04 Dose: 0.5 mg Ondansetron HCl (Zofran) 4 mg IVPUSH Q4H PRN PRN Reason: Nausea/Vomiting Last Admin: 01/28/19 08:41 Dose: 4 mg Pantoprazole Sodium (Protonix) 40 mg PO BIDAC [facility] Last Admin: 01/28/19 08:15 Dose: 40 mg Discontinued Medications Sodium Chloride (Normal Saline) 1,000 mls @ 999 mls/hr IV ASDIRECTED [facility] Last Admin: 01/27/19 04:02 Dose: 999 mls/hr Insulin Human Regular 100 unit (/ Sodium Chloride) 100 mls @ 6.35 mls/hr IV TITRATE [facility]; Protocol Last Titration: 01/27/19 05:34 Dose: Infused Sodium Chloride (Normal Saline) 1,000 mls @ 999 mls/hr IV ASDIRECTED [facility] Last Admin: 01/26/19 23:06 Dose: 999 mls/hr Dextrose/Sodium Chloride (Dextrose 5%-Normal Saline) 1,000 mls @ 100 mls/hr IV ASDIRECTED [facility] Last Admin: 01/27/19 15:04 Dose: 100 mls/hr Sodium Chloride (Normal Saline) 1,000 mls @ 150 mls/hr IV ASDIRECTED [facility] Last Admin: 01/28/19 08:46 Dose: 150 mls/hr Insulin Human Lispro (Humalog) 0 unit SUBCUT QIDACANDBED [facility]; Protocol Last Admin: 01/27/19 16:43 Dose: 6 units Insulin Human Regular (Humulin R) 4 unit IVPUSH ONETIME ONE Stop: 01/26/19 22:12 Last Admin: 01/26/19 22:38 Dose: 4 units Lorazepam (Ativan) 0.5 mg IVPUSH ONETIME ONE Stop: 01/26/19 21:43 Last Admin: 01/26/19 22:01 Dose: 0.5 mg Lorazepam (Ativan) 0.5 mg IVPUSH ONETIME ONE Stop: 01/28/19 10:10 Last Admin: 01/28/19 10:16 Dose: 0.5 mg Metformin HCl (Glucophage) 1,000 mg PO BIDMEALS [facility] Last Admin: 01/28/19 08:16 Dose: 1,000 mg Ondansetron HCl (Zofran) 4 mg IVPUSH ONETIME ONE Stop: 01/26/19 21:38 Last Admin: 01/26/19 22:05 Dose: 4 mg Pantoprazole Sodium (Protonix Iv) 40 mg IVPUSH ONETIME ONE Stop: 01/26/19 22:32 Last Admin: 01/26/19 22:54 Dose: 40 mg Pantoprazole Sodium (Protonix Iv) 40 mg IV Q12H [facility] Last Admin: 01/26/19 23:21 Dose: Not Given Potassium Chloride (Klor-Con M20) 40 meq PO ONETIME ONE Stop: 01/27/19 05:09 Last Admin: 01/27/19 05:25 Dose: 40 meq Potassium Chloride (Klor-Con M20) 40 meq PO ONETIME ONE Stop: 01/28/19 10:01 - Exam Quality Assessment: DVT Prophylaxis General: Alert, Cooperative, Moderate Distress Lungs: Clear to Auscultation, Normal Respiratory Effort Cardiovascular: Regular Rate, Regular Rhythm GI/Abdominal Exam: Soft, No Organomegaly, Tender. No: Distended, Guarding, Rigid, Rebound Extremities: Non-Tender, Pedal Edema - Problem List Review Problem List Initiated/Reviewed/Updated: Yes - My Orders Last 24 Hours: My Active Orders 01/27/19 10:00 Enoxaparin [Lovenox] 40 mg SUBCUT DAILY 01/27/19 10:58 Ondansetron [Zofran] 4 mg IVPUSH Q4H PRN 01/27/19 12:50 LORazepam [Ativan] 0.5 mg IVPUSH Q2H PRN 01/27/19 16:30 Pantoprazole [ProTONIX] 40 mg PO BIDAC 01/27/19 18:00 Insulin Lispro [HumaLOG] See Protocol SUBCUT Q4H 01/27/19 21:00 Insulin Glarg,Human.Rec.Analog [LantUS Solostar] 20 units SUBCUT BEDTIME 01/28/19 10:21 Abdomen Pelvis w Cont [CT] Stat 01/28/19 10:30 Sodium Chloride 0.9% @ 50 MLS/HR(1000ml) Sodium Chloride 0.9% [Normal Saline] 1 ,000 ml IV ASDIRECTED 01/29/19 02:15 GLUCOSE POC LAB TO COLLECT [POC] Q4H 01/29/19 05:00 CBC WITH AUTO DIFF [HEME] Timed COMPREHENSIVE METABOLIC PN,CMP [CHEM] Timed 01/29/19 06:15 GLUCOSE POC LAB TO COLLECT [POC] Q4H 01/29/19 10:15 GLUCOSE POC LAB TO COLLECT [POC] Q4H 01/29/19 14:15 GLUCOSE POC LAB TO COLLECT [POC] Q4H 01/29/19 18:15 GLUCOSE POC LAB TO COLLECT [POC] Q4H 01/29/19 22:15 GLUCOSE POC LAB TO COLLECT [POC] Q4H 01/30/19 02:15 GLUCOSE POC LAB TO COLLECT [POC] Q4H 01/30/19 06:15 GLUCOSE POC LAB TO COLLECT [POC] Q4H 01/30/19 10:15 GLUCOSE POC LAB TO COLLECT [POC] Q4H 01/30/19 14:15 GLUCOSE POC LAB TO COLLECT [POC] Q4H 01/30/19 18:15 GLUCOSE POC LAB TO COLLECT [POC] Q4H 01/30/19 22:15 GLUCOSE POC LAB TO COLLECT [POC] Q4H - Plan Plan:: ASSESSMENT AND PLAN DIABETIC [id number] history of poorly controlled type 2 diabetes mellitus. Soft with current management -Lantus insulin 20 units subcutaneous daily at bedtime -4 times a day glucometers -Moderate dose sliding scale Humalog -Diabetes education LACTIC ACIDOSIS-resolved UNCONTROLLED TYPE 2 DIABETES MELLITUS-hemoglobin A1c elevated at 14.8 -Management as above MAINTENANCE ISSUES -DVT prophylaxis; Lovenox 40 mg subcutaneous daily -GI prophylaxis; Protonix 40 mg twice daily -Kim catheter; not indicated -Nutrition; consistent carb diet -Nicotine dependence; not required CODE STATUS-FULL CODE ADMISSION STATUS-patient will be admitted to inpatient status, expect at least a 2 night hospital stay for evaluation and management of problems as outlined above. At the time of this admission I do not reasonably expected evaluation and management of this problem will require more than a 96 hour hospital stay. DISPOSITION-anticipate discharge to home after the hospital stay. PRIMARY CARE PROVIDER-patient is from [facility] and receives her health care there
[2019-01-28] MEDS ORDERED: Sodium Chloride 0.9% 1,000 ML IV SCH (10:30)
[2019-01-28] MEDS ORDERED: Iopamidol 612 MG/ML 100 ML Bottle IV PRN (10:31)
--- NOTE | 2019-01-28 11:28 | CRLCT ---
HISTORY: Persistent abdominal pain with nausea. TECHNIQUE: Intravenous contrast enhanced CT of the abdomen and pelvis. 100 mL of Isovue-300 intravenous contrast was administered. COMPARISON: No prior. FINDINGS: Examination is mildly limited by motion artifact. - The liver size is mildly prominent. There is a calcification within the posterior segment right hepatic lobe which may relate to prior granulomatous infection. No biliary ductal dilatation. Gallbladder does not appear excessively distended. Calcified splenic granulomata are present. The adrenal glands are normal. There is no focal pancreatic abnormality. Symmetric nephrograms. No renal mass. No obstructive urinary calculus. The multiple pelvic calcifications are most likely represent phleboliths. Urinary bladder appears distended. - Large hiatal hernia. No small bowel obstruction. No abnormally dilated appendix. Colonic diverticulosis without acute diverticulitis. No abdominal aortic aneurysm. - Bilateral chronic pars defects at L5 with grade 2 anterolisthesis L5 on S1. Degenerative changes within the spine otherwise. Degenerative changes of the hips and sacroiliac joints. - Trace amount of pleural fluid bilaterally. Calcified granuloma right lower lobe. Lung parenchymal assessment limited by respiratory motion. IMPRESSION: 1. No bowel obstruction. 2. Diverticulosis without diverticulitis. 3. Large hiatal hernia. 4. Atherosclerotic changes of the abdominal aorta without aneurysm. 5. Distended urinary bladder. No hydronephrosis or obstructive urinary calculus. 6. Trace pleural effusions. 7. Bilateral chronic pars defects at L5 with grade 2 anterolisthesis of L5 on S1. Dictated by Ruben Cosby MD @ 01/28/2019 11:27:43 AM Please note that all CT scans at this facility use dose modulation, iterative reconstruction, and/or weight-based dosing when appropriate to reduce radiation dose to as low as reasonably achievable. Dictated by: Ruben Cosby MD @ 01/28/2019 11:27:48 (Electronically Signed)
--- NOTE | 2019-01-28 16:56 | CRLUS ---
INDICATION: Right-sided abdominal pain TECHNIQUE: Multiple grayscale sonographic images of the right upper quadrant the abdomen. COMPARISON: CT abdomen pelvis with contrast 01/28/2019 FINDINGS: The visualized pancreatic head and body demonstrate normal echotexture. The distal pancreas is partially obscured. There is no pancreatic ductal dilatation. There is normal caliber of the visualized aorta. The intrahepatic IVC is patent. The visualized liver parenchyma demonstrates normal echotexture. No suspicious lesions are demonstrated. The main portal vein is patent. There is no intrahepatic biliary dilatation. The common bile duct is normal caliber, measuring up to 4 mm. No stones or sludge are seen in the gallbladder lumen. There is normal thickness of the gallbladder wall, measuring less than 2 mm. There is no pericholecystic fluid. A 6 mm polyp is noted in the gallbladder fundus. The right kidney measures 11.5 cm in length and demonstrates normal parenchymal echotexture and cortical thickness. There is no hydronephrosis. IMPRESSION: 1. No cholelithiasis or findings of acute cholecystitis. 2. A gallbladder 6 mm polyp at the fundus. Follow-up ultrasound is recommended in 6 months to assess stability. Dictated by Ganesh Tsang MD @ Jan 28 2019 4:45PM Signed by Dr. Ganesh Tsang @ Jan 28 2019 4:54PM
[2019-01-28] MEDS: Insulin Glargine,Human Rec. Analog 100 Units/ML 3 ML Pen SUBCUT SCH (21:38)
[2019-01-29] MEDS: Insulin Lispro 100 Unit/ML 3 ML KwikPen SUBCUT SCH ×6 (02:04→21:40)
[2019-01-29] MEDS: Ondansetron 4 MG/2 ML SDV IVPUSH PRN ×3 (03:43→19:48)
[2019-01-29] MEDS: LORazepam 2 MG/ML SDV IVPUSH PRN ×3 (05:37→21:49)
[2019-01-29] MEDS ORDERED: Potassium Chloride 20 MEQ in Premix Bag 1 BAG IV SCH (06:30)
[2019-01-29] MEDS: Pantoprazole 40 MG Tab.CR PO SCH ×2 (08:22→17:50)
[2019-01-29] MEDS ORDERED: Potassium Chloride 20 MEQ, Lidocaine 1% 2 ML in Sodium Chloride 0.9% 100 ML IV ONE (08:30)
[2019-01-29] MEDS: cefTRIAXone 1 GM in Sodium Chloride 0.9% 50 ML IV SCH (08:40)
[2019-01-29] MEDS: Enoxaparin 40 MG/0.4 ML Syringe SUBCUT SCH (09:24)
[2019-01-29] MEDS: Lactobacillus Rhamnosus GG (Probiotic) Cap PO SCH ×2 (09:24→21:37)
[2019-01-29] MEDS: Tamsulosin 0.4 MG Cap.ER PO SCH (09:54)
--- NOTE | 2019-01-29 10:06 | PCM.PN ---
- General Info Date of Service: 01/29/19 Subjective Update: Ms. Milner is improved since yesterday with less nausea and over almost strength has improved. Kim catheter was placed last night because of urinary retention and she would like it removed today. CT scan of the abdomen and pelvis showed no obvious abnormalities, other than a hiatal hernia and bladder distention. Ultrasound of the right upper quadrant of the abdomen showed no evidence of cholecystitis, gallbladder polyp was noted that will need to be followed up in 6 months. Functional Status: Reports: Tolerating Diet, Ambulating. Denies: Urinating - Review of Systems General: Reports: Weakness. Denies: Fever, Chills Pulmonary: Reports: No Symptoms Cardiovascular: Reports: No Symptoms Gastrointestinal: Reports: No Symptoms - Patient Data Vitals - Most Recent: Last Vital Signs Temp 98.2 F 01/29/19 08:00 Pulse 65 01/29/19 08:00 Resp 12 01/29/19 08:00 BP 105/56 L 01/29/19 08:00 Pulse Ox 95 01/29/19 08:00 Weight - Most Recent: 163 lb 15.995 oz I&O - Last 24 Hours: Intake & Output 01/28/19 01/29/19 01/29/19 22:59 06:59 14:59 Intake Total 1304 557 Output Total 2850 3225 Balance -1485 -0921 Lab Results Last 24 Hours: Laboratory Results - last 24 hr 01/28/19 01/29/19 01/29/19 Range/Units 16:22 05:30 05:30 WBC 8.1 (4.5-11.0) K/uL RBC 3.74 (3.30-5.50) M/uL Hgb 11.6 L (12.0-15.0) g/dL Hct 34.6 L (36.0-48.0) % MCV 93 (80-98) fL MCH 31 (27-31) pg MCHC 34 (32-36) % Plt Count 165 (150-400) K/uL Neut % (Auto) 72 H (36-66) % Lymph % (Auto) 20 L (24-44) % [place] % (Auto) 8 H (2-6) % Eos % (Auto) 1 L (2-4) % Baso % (Auto) 0 (0-1) % Sodium 138 L (140-148) mmol/L Potassium 2.9 L* (3.6-5.2) mmol/L Chloride 103 (100-108) mmol/L Carbon Dioxide 24 (21-32) mmol/L Anion Gap 13.9 (5.0-14.0) mmol/L BUN 5 L D (7-18) mg/dL Creatinine 0.5 L (0.6-1.0) mg/dL Est Cr Clr Drug Dosing 113.60 mL/min Estimated GFR (MDRD) > 60 (>60) Glucose 161 H (74-106) mg/dL Calcium 8.7 (8.5-10.1) mg/dL Total Bilirubin 0.5 (0.2-1.0) mg/dL AST 14 L (15-37) U/L ALT 13 (12-78) U/L Alkaline Phosphatase 69 (46-116) U/L Total Protein 5.9 L (6.4-8.2) g/dL Albumin 2.6 L (3.4-5.0) g/dL Globulin 3.3 (2.3-3.5) g/dL Albumin/Globulin Ratio 0.8 L (1.2-2.2) Urine Color Yellow (YELLOW) Urine Appearance Slightly cloudy A (CLEAR) Urine pH 5.5 (5.0-8.0) Ur Specific [place] 1.020 (1.008-1.030) Urine Protein Negative (NEGATIVE) mg/dL Urine Glucose (UA) 500 H (NEGATIVE) mg/dL Urine Ketones 40 H (NEGATIVE) mg/dL Urine Occult Blood Small H (NEGATIVE) Urine Nitrite Negative (NEGATIVE) Urine Bilirubin Negative (NEGATIVE) Urine Urobilinogen 0.2 (0.2-1.0) EU/dL Ur Leukocyte Esterase Trace H (NEGATIVE) Urine RBC 0-5 (0-5) Urine WBC 20-30 H (0-5) Ur Epithelial Cells Few Amorphous Sediment Not seen Urine Bacteria Many Urine Mucus Few Med Orders - Current: Current Medications Dextrose (Glutose 15) 15 gm PO ONETIME PRN PRN Reason: Hypoglycemia Dextrose/Water (Dextrose 50% In Water) 50 ml IV ONETIME PRN PRN Reason: Hypoglycemia Enoxaparin Sodium (Lovenox) 40 mg SUBCUT DAILY SARAH Last Admin: 01/29/19 09:24 Dose: 40 mg Potassium Chloride 20 meq/Lidocaine HCl 2 ml/ Sodium Chloride 112 mls @ 56 mls/ hr IV ONETIME ONE Stop: 01/29/19 10:29 Last Admin: 01/29/19 09:06 Dose: 56 mls/hr Ceftriaxone Sodium 1 gm/ (Sodium Chloride) 50 mls @ 100 mls/hr IV Q24H [facility] Last Admin: 01/29/19 08:40 Dose: 100 mls/hr Insulin Glargine (Lantus Solostar) 20 units SUBCUT BEDTIME [facility] Last Admin: 01/28/19 21:38 Dose: 20 units Insulin Human Lispro (Humalog) 0 unit SUBCUT Q4H [facility]; Protocol Last Admin: 01/29/19 05:32 Dose: 3 units Iopamidol (Isovue-300 (61%)) 100 ml IV . DIRECTED PRN PRN Reason: RADIOLOGY EXAM Stop: 01/29/19 10:32 Last Admin: 01/28/19 10:52 Dose: 100 ml Lactobacillus Rhamnosus (Culturelle) 1 cap PO BID [facility] Last Admin: 01/29/19 09:24 Dose: 1 cap Lorazepam (Ativan) 0.5 mg IVPUSH Q2H PRN PRN Reason: Nausea Last Admin: 01/29/19 05:37 Dose: 0.5 mg Ondansetron HCl (Zofran) 4 mg IVPUSH Q4H PRN PRN Reason: Nausea/Vomiting Last Admin: 01/29/19 03:43 Dose: 4 mg Pantoprazole Sodium (Protonix) 40 mg PO BIDAC [facility] Last Admin: 01/29/19 08:22 Dose: Not Given Tamsulosin HCl (Flomax) 0.4 mg PO PCBREAKFAST [facility] Last Admin: 01/29/19 09:54 Dose: 0.4 mg Discontinued Medications Sodium Chloride (Normal Saline) 1,000 mls @ 999 mls/hr IV ASDIRECTED [facility] Last Admin: 01/27/19 04:02 Dose: 999 mls/hr Insulin Human Regular 100 unit (/ Sodium Chloride) 100 mls @ 6.35 mls/hr IV TITRATE [facility]; Protocol Last Titration: 01/27/19 05:34 Dose: Infused Sodium Chloride (Normal Saline) 1,000 mls @ 999 mls/hr IV ASDIRECTED [facility] Last Admin: 01/26/19 23:06 Dose: 999 mls/hr Dextrose/Sodium Chloride (Dextrose 5%-Normal Saline) 1,000 mls @ 100 mls/hr IV ASDIRECTED [facility] Last Admin: 01/27/19 15:04 Dose: 100 mls/hr Sodium Chloride (Normal Saline) 1,000 mls @ 150 mls/hr IV ASDIRECTED [facility] Last Admin: 01/28/19 08:46 Dose: 150 mls/hr Sodium Chloride (Normal Saline) 1,000 mls @ 50 mls/hr IV ASDIRECTED [facility] Last Admin: 01/29/19 00:59 Dose: 50 mls/hr Sodium Chloride (Normal Saline) 74 mls @ 3 mls/sec IV ASDIRECTED [facility] Stop: 01/28/19 10:46 Last Admin: 01/28/19 10:53 Dose: 3 mls/sec Potassium Chloride 20 meq/ (Premix) 0 mls @ 50 mls/hr IV Q2H [facility] Stop: 01/29/19 08:15 Last Admin: 01/29/19 06:23 Dose: 50 mls/hr Insulin Human Lispro (Humalog) 0 unit SUBCUT QIDACANDBED [facility]; Protocol Last Admin: 01/27/19 16:43 Dose: 6 units Insulin Human Regular (Humulin R) 4 unit IVPUSH ONETIME ONE Stop: 01/26/19 22:12 Last Admin: 01/26/19 22:38 Dose: 4 units Lidocaine HCl (Xylocaine-Mpf 1%) 5 ml INJECT ONETIME ONE Stop: 01/29/19 06:09 Last Admin: 01/29/19 06:23 Dose: 5 ml Lorazepam (Ativan) 0.5 mg IVPUSH ONETIME ONE Stop: 01/26/19 21:43 Last Admin: 01/26/19 22:01 Dose: 0.5 mg Lorazepam (Ativan) 0.5 mg IVPUSH ONETIME ONE Stop: 01/28/19 10:10 Last Admin: 01/28/19 10:16 Dose: 0.5 mg Metformin HCl (Glucophage) 1,000 mg PO BIDMEALS [facility] Last Admin: 01/28/19 08:16 Dose: 1,000 mg Ondansetron HCl (Zofran) 4 mg IVPUSH ONETIME ONE Stop: 01/26/19 21:38 Last Admin: 01/26/19 22:05 Dose: 4 mg Pantoprazole Sodium (Protonix Iv) 40 mg IVPUSH ONETIME ONE Stop: 01/26/19 22:32 Last Admin: 01/26/19 22:54 Dose: 40 mg Pantoprazole Sodium (Protonix Iv) 40 mg IV Q12H [facility] Last Admin: 01/26/19 23:21 Dose: Not Given Potassium Chloride (Klor-Con M20) 40 meq PO ONETIME ONE Stop: 01/27/19 05:09 Last Admin: 01/27/19 05:25 Dose: 40 meq Potassium Chloride (Klor-Con M20) 40 meq PO ONETIME ONE Stop: 01/28/19 10:01 Last Admin: 01/28/19 11:14 Dose: 40 meq - Exam Quality Assessment: Urine Catheter, DVT Prophylaxis General: Alert, Oriented, Cooperative, Mild Distress Lungs: Clear to Auscultation, Normal Respiratory Effort Cardiovascular: Regular Rate, Regular Rhythm, No Murmurs GI/Abdominal Exam: Soft, Non-Tender, No Organomegaly, No Distention Extremities: Non-Tender, No Pedal Edema - Problem List Review Problem List Initiated/Reviewed/Updated: Yes - My Orders Last 24 Hours: My Active Orders 01/28/19 10:31 Iopamidol [Isovue-300 (61%)] 100 ml IV . DIRECTED PRN 01/28/19 16:24 CULTURE URINE [RM] Routine 01/29/19 08:30 Potassium Chloride 20 meq Lidocaine 1% [Xylocaine 1%] 2 ml Sodium Chloride 0.9 % [Normal Saline] 100 ml IV ONETIME 01/29/19 09:00 Lactobacillus Rhamnosus GG [Culturelle] 1 cap PO BID Tamsulosin [Flomax] 0.4 mg PO PCBREAKFAST cefTRIAXone [Rocephin] 1 gm Sodium Chloride 0.9% [Normal Saline] 50 ml IV Q24H 01/29/19 09:51 Remove Kim Catheter [Urinary Catheter Removal] [RC] Per Unit Routine 01/29/19 09:52 Convert IV to Saline Lock [OM.PC] Routine 01/29/19 Breakfast Consistent Carbohydrate Diet [DIET] 01/30/19 02:15 GLUCOSE POC LAB TO COLLECT [POC] Q4H 01/30/19 06:15 GLUCOSE POC LAB TO COLLECT [POC] Q4H 01/30/19 10:15 GLUCOSE POC LAB TO COLLECT [POC] Q4H 01/30/19 14:15 GLUCOSE POC LAB TO COLLECT [POC] Q4H 01/30/19 18:15 GLUCOSE POC LAB TO COLLECT [POC] Q4H 01/30/19 22:15 GLUCOSE POC LAB TO COLLECT [POC] Q4H - Plan Plan:: ASSESSMENT AND PLAN DIABETIC [id number] history of poorly controlled type 2 diabetes mellitus. -Lantus insulin 20 units subcutaneous daily at bedtime -4 times a day glucometers -Moderate dose sliding scale Humalog -Diabetes education -Resume metformin 1 g by mouth twice daily LACTIC ACIDOSIS-resolved UNCONTROLLED TYPE 2 DIABETES MELLITUS-hemoglobin A1c elevated at 14.8 -Management as above PERSISTENT NAUSEA-initially thought secondary to viral gastroenteritis. With persistent symptoms yesterday CT scan and ultrasound performed showing no obvious cause of ongoing nausea. She was feeling somewhat better this morning and refuses EGD. -Continue Protonix 40 mg by mouth twice a day MAINTENANCE ISSUES -DVT prophylaxis; Lovenox 40 mg subcutaneous daily -GI prophylaxis; Protonix 40 mg twice daily -Kim catheter; not indicated -Nutrition; consistent carb diet -Nicotine dependence; not required CODE STATUS-FULL CODE ADMISSION STATUS-patient will be admitted to inpatient status, expect at least a 2 night hospital stay for evaluation and management of problems as outlined above. At the time of this admission I do not reasonably expected evaluation and management of this problem will require more than a 96 hour hospital stay. DISPOSITION-anticipate discharge to home after the hospital stay. PRIMARY CARE PROVIDER-patient is from [facility] and receives her health care there
[2019-01-29] MEDS: Sucralfate Suspension 1 GM/10 ML Cup PO SCH ×2 (17:49→21:37)
[2019-01-29] MEDS: metFORMIN 500 MG Tab PO SCH (17:50)
[2019-01-29] MEDS ORDERED: Insulin Glargine,Human Rec. Analog 100 Units/ML 3 ML Pen SUBCUT SCH (21:00)
[2019-01-30] MEDS: Insulin Lispro 100 Unit/ML 3 ML KwikPen SUBCUT SCH ×2 (08:33→12:25)
[2019-01-30] MEDS: Sucralfate Suspension 1 GM/10 ML Cup PO SCH ×2 (08:40→12:26)
[2019-01-30] MEDS: Lactobacillus Rhamnosus GG (Probiotic) Cap PO SCH (08:40)
[2019-01-30] MEDS: Pantoprazole 40 MG Tab.CR PO SCH (08:40)
[2019-01-30] MEDS: Enoxaparin 40 MG/0.4 ML Syringe SUBCUT SCH (08:40)
[2019-01-30] MEDS: metFORMIN 500 MG Tab PO SCH (08:41)
[2019-01-30] MEDS: Tamsulosin 0.4 MG Cap.ER PO SCH (09:15)
[2019-01-30] MEDS: cefTRIAXone 1 GM in Sodium Chloride 0.9% 50 ML IV SCH (09:16)
[2019-01-30] MEDS ORDERED: Potassium Chloride Riders 40 MEQ in Premix Bag 1 BAG IV ONE (09:20)
[2019-01-30] MEDS ORDERED: Potassium Chloride 20 MEQ Tab.ER PO ONE (10:00)
[2019-01-30] MEDS: Potassium Chloride 20 MEQ, Lidocaine 1% 2 ML in Sodium Chloride 0.9% 100 ML IV SCH ×2 (10:35→12:38)
--- NOTE | 2019-01-30 12:36 | PCM.DCSUM1 ---
Discharge Summary - Hospital Course Brief History: Ms. Milner is a 63-year-old woman who was admitted through the emergency department with weakness, nausea, vomiting, secondary to diabetic ketoacidosis and marked hyperglycemia. - Discharge Data Discharge Date: 01/30/19 Discharge Disposition: Home, Self-Care 01 Condition: Fair - Referral to Home Health Primary Care Physician: PCP None - Discharge Diagnosis/Problem(s) (1) Type 2 diabetes mellitus SNOMED Code(s): 84178464 ICD Code: E11.9 - TYPE 2 DIABETES MELLITUS WITHOUT COMPLICATIONS Status: Acute Current Visit: Yes (2) Diabetic keto-acidosis SNOMED Code(s): 743584486, 174200343 ICD Code: E11.10 - TYPE 2 DIABETES MELLITUS WITH KETOACIDOSIS WITHOUT COMA Status: Acute Current Visit: Yes Onset Date: ~01/25/19 Qualifiers: Diabetes mellitus type: type 2 Diabetes mellitus complication detail: without coma Qualified Code(s): E11.10 - Type 2 diabetes mellitus with ketoacidosis without coma (3) Dehydration SNOMED Code(s): 37633704 ICD Code: E86.0 - DEHYDRATION Status: Acute Current Visit: Yes Onset Date: ~01/25/19 (4) Renal insufficiency SNOMED Code(s): 030914258, 637999499 ICD Code: N28.9 - DISORDER OF KIDNEY AND URETER, UNSPECIFIED Status: Acute Current Visit: Yes Onset Date: ~01/25/19 (5) Gastroenteritis SNOMED Code(s): 80465978 ICD Code: K52.9 - NONINFECTIVE GASTROENTERITIS AND COLITIS, UNSPECIFIED Status: Acute Current Visit: Yes (6) Nausea and vomiting SNOMED Code(s): 05019775 ICD Code: R11.2 - NAUSEA WITH VOMITING, UNSPECIFIED Status: Acute Current Visit: Yes - Patient Summary/Data Hospital Course: Ms. Milner is a 63-year-old woman who was admitted through the emergency department by Dr. Brizuela. She presented with nausea, vomiting, weakness, secondary to marked hyperglycemia and diabetic ketoacidosis. She has a long- standing history of type 2 diabetes mellitus with poor control. Previously treated with metformin and insulin, which she has not taken for some time. HGB A1c was found to be markedly elevated at 14.8. On admission she was given vigorous IV fluid replacement for management of diabetic ketoacidosis and placed on a continuous infusion of regular insulin. By the following morning sugars have come under better control and ketoacidosis had essentially resolved. She was transitioned to oral therapy with metformin 1 g twice daily and long-acting insulin with Lantus 16 units at night. Blood sugars remained under fairly good control with this regimen through the rest of her hospital stay. Urinalysis was obtained and did suggest urinary tract infection. She was started on IV ceftriaxone after urine cultures have been obtained. Urine culture later grew out mixed aurea and it was felt that she did not have a true infection, antibiotic therapy was discontinued. She had persistent symptoms of nausea and vomiting despite management and control of her ketoacidosis as well as hyperglycemia. Was felt likely that she was experiencing a viral gastroenteritis. Because of associated abdominal pain further investigation was pursued. CT scan of the abdomen showed no significant abnormalities other than a polyp within the gallbladder, follow-up CT scan recommended in 6 months. Ultrasound was also obtained and showed no evidence of hepatic ductal dilatation or gallbladder wall thickening. We discussed proceeding with EGD for further evaluation of her symptoms which she refused. She was treated with IV Protonix as well as oral Carafate. By the morning of discharge she was feeling well with no further symptoms of nausea vomiting or abdominal pain. CT scan did note evidence of bladder distention, bladder scan showed significant urine within the bladder. Kim catheter was placed but then removed the next day. She was started on Flomax and was able to urinate adequately prior to discharge. She tolerated a regular breakfast without significant difficulty. She will be discharged home with medications including metformin, Lantus insulin , Flomax, Protonix, and potassium supplements. Activity will be as tolerated and she will resume a diabetic diet. I'll up appointment will be scheduled with her primary care provider within one week. She should have follow-up with certified adaptive physical educator as soon as possible. - Patient Instructions Diet: Diabetic Diet Activity: As Tolerated Other/Special Instructions: Please schedule follow-up appointment with primary care provider within one week. Please schedule follow-up appointment with certified adaptive physical educator as soon as possible. - Discharge Plan *PRESCRIPTION DRUG MONITORING PROGRAM REVIEWED*: Not Applicable *COPY OF PRESCRIPTION DRUG MONITORING REPORT IN PATIENT MADAI: Not Applicable Prescriptions/Med Rec: Insulin Glarg,Human.Rec.Analog [Lantus Solostar] 16 units SUBCUT BEDTIME #2 pen metFORMIN [Glucophage XR] 1,000 mg PO BIDMEALS #60 tab.er Pantoprazole [ProTONIX] 40 mg PO DAILY #30 tab.cr Potassium Chloride 40 meq PO DAILY #60 tablet.er Tamsulosin [Flomax] 0.4 mg PO PCBREAKFAST #30 cap.er Home Medications: Home Meds Insulin Glarg,Human.Rec.Analog [Lantus Solostar] 16 units SUBCUT BEDTIME #2 pen 01/30/19 [Rx] Pantoprazole [ProTONIX] 40 mg PO DAILY #30 tab.cr 01/30/19 [Rx] Potassium Chloride 40 meq PO DAILY #60 tablet.er 01/30/19 [Rx] Tamsulosin [Flomax] 0.4 mg PO PCBREAKFAST #30 cap.er 01/30/19 [Rx] metFORMIN [Glucophage XR] 1,000 mg PO BIDMEALS #60 tab.er 01/30/19 [Rx] - Discharge Summary/Plan Comment DC Time >30 min.: No - Patient Data Vitals - Most Recent: Last Vital Signs Temp 97.2 F 01/30/19 11:28 Pulse 82 01/30/19 11:28 Resp 16 01/30/19 11:28 BP 109/54 L 01/30/19 11:28 Pulse Ox 99 01/30/19 11:28 Weight - Most Recent: 163 lb 15.995 oz I&O - Last 24 hours: Intake & Output 01/29/19 01/30/19 01/30/19 22:59 06:59 14:59 Output Total 150 650 Balance -150 -650 Lab Results - Last 24 hrs: Laboratory Results - last 24 hr 01/30/19 Range/Units 08:39 Sodium 138 L (140-148) mmol/L Potassium 2.8 L* (3.6-5.2) mmol/L Chloride 103 (100-108) mmol/L Carbon Dioxide 27 (21-32) mmol/L Anion Gap 10.8 (5.0-14.0) mmol/L BUN 9 D (7-18) mg/dL Creatinine 0.6 (0.6-1.0) mg/dL Est Cr Clr Drug Dosing 94.67 mL/min Estimated GFR (MDRD) > 60 (>60) Glucose 132 H (74-106) mg/dL Calcium 8.8 (8.5-10.1) mg/dL LAURENCE Results - Last 24 hrs: Microbiology 01/28/19 16:24 Urine Culture - Preliminary Urine, Clean Catch MIXED POSITIVE AUREA DAY 1 Med Orders - Current: Current Medications Dextrose (Glutose 15) 15 gm PO ONETIME PRN PRN Reason: Hypoglycemia Dextrose/Water (Dextrose 50% In Water) 50 ml IV ONETIME PRN PRN Reason: Hypoglycemia Enoxaparin Sodium (Lovenox) 40 mg SUBCUT DAILY [facility] Last Admin: 01/30/19 08:40 Dose: Not Given Ceftriaxone Sodium 1 gm/ (Sodium Chloride) 50 mls @ 100 mls/hr IV Q24H [facility] Last Admin: 01/30/19 09:16 Dose: 100 mls/hr Potassium Chloride 20 meq/Lidocaine HCl 2 ml/ Sodium Chloride 112 mls @ 56 mls/ hr IV Q2H [facility] Stop: 01/30/19 13:59 Last Admin: 01/30/19 10:35 Dose: 56 mls/hr Insulin Glargine (Lantus Solostar) 12 units SUBCUT BEDTIME [facility] Last Admin: 01/29/19 21:38 Dose: 12 units Insulin Human Lispro (Humalog) 0 unit SUBCUT QIDACANDBED [facility]; Protocol Last Admin: 01/30/19 08:33 Dose: Not Given Lactobacillus Rhamnosus (Culturelle) 1 cap PO BID [facility] Last Admin: 01/30/19 08:40 Dose: 1 cap Lorazepam (Ativan) 0.5 mg IVPUSH Q2H PRN PRN Reason: Nausea Last Admin: 01/29/19 21:49 Dose: 0.5 mg Metformin HCl (Glucophage) 1,000 mg PO BIDMEALS [facility] Last Admin: 01/30/19 08:41 Dose: 1,000 mg Ondansetron HCl (Zofran) 4 mg IVPUSH Q4H PRN PRN Reason: Nausea/Vomiting Last Admin: 01/29/19 19:48 Dose: 4 mg Pantoprazole Sodium (Protonix) 40 mg PO BIDAC [facility] Last Admin: 01/30/19 08:40 Dose: 40 mg Sucralfate (Carafate) 1 gm PO QIDACANDBED [facility] Last Admin: 01/30/19 08:40 Dose: 1 gm Tamsulosin HCl (Flomax) 0.4 mg PO PCBREAKFAST [facility] Last Admin: 01/30/19 09:15 Dose: 0.4 mg Discontinued Medications Sodium Chloride (Normal Saline) 1,000 mls @ 999 mls/hr IV ASDIRECTED SARAH Last Admin: 01/27/19 04:02 Dose: 999 mls/hr Insulin Human Regular 100 unit (/ Sodium Chloride) 100 mls @ 6.35 mls/hr IV TITRATE SARAH; Protocol Last Titration: 01/27/19 05:34 Dose: Infused Sodium Chloride (Normal Saline) 1,000 mls @ 999 mls/hr IV ASDIRECTED SARAH Last Admin: 01/26/19 23:06 Dose: 999 mls/hr Dextrose/Sodium Chloride (Dextrose 5%-Normal Saline) 1,000 mls @ 100 mls/hr IV ASDIRECTED SARAH Last Admin: 01/27/19 15:04 Dose: 100 mls/hr Sodium Chloride (Normal Saline) 1,000 mls @ 150 mls/hr IV ASDIRECTED SARAH Last Admin: 01/28/19 08:46 Dose: 150 mls/hr Sodium Chloride (Normal Saline) 1,000 mls @ 50 mls/hr IV ASDIRECTED SARAH Last Admin: 01/29/19 00:59 Dose: 50 mls/hr Sodium Chloride (Normal Saline) 74 mls @ 3 mls/sec IV ASDIRECTED SARAH Stop: 01/28/19 10:46 Last Admin: 01/28/19 10:53 Dose: 3 mls/sec Potassium Chloride 20 meq/ (Premix) 0 mls @ 50 mls/hr IV Q2H SARAH Stop: 01/29/19 08:15 Last Admin: 01/29/19 06:23 Dose: 50 mls/hr Potassium Chloride 20 meq/Lidocaine HCl 2 ml/ Sodium Chloride 112 mls @ 56 mls/ hr IV ONETIME ONE Stop: 01/29/19 10:29 Last Admin: 01/29/19 09:06 Dose: 56 mls/hr Insulin Glargine (Lantus Solostar) 20 units SUBCUT BEDTIME [facility] Last Admin: 01/28/19 21:38 Dose: 20 units Insulin Human Lispro (Humalog) 0 unit SUBCUT QIDACANDBED [facility]; Protocol Last Admin: 01/27/19 16:43 Dose: 6 units Insulin Human Lispro (Humalog) 0 unit SUBCUT Q4H [facility]; Protocol Last Admin: 01/29/19 14:46 Dose: Not Given Insulin Human Regular (Humulin R) 4 unit IVPUSH ONETIME ONE Stop: 01/26/19 22:12 Last Admin: 01/26/19 22:38 Dose: 4 units Iopamidol (Isovue-300 (61%)) 100 ml IV . DIRECTED PRN PRN Reason: RADIOLOGY EXAM Stop: 01/29/19 10:32 Last Admin: 01/28/19 10:52 Dose: 100 ml Lidocaine HCl (Xylocaine-Mpf 1%) 5 ml INJECT ONETIME ONE Stop: 01/29/19 06:09 Last Admin: 01/29/19 06:23 Dose: 5 ml Lorazepam (Ativan) 0.5 mg IVPUSH ONETIME ONE Stop: 01/26/19 21:43 Last Admin: 01/26/19 22:01 Dose: 0.5 mg Lorazepam (Ativan) 0.5 mg IVPUSH ONETIME ONE Stop: 01/28/19 10:10 Last Admin: 01/28/19 10:16 Dose: 0.5 mg Metformin HCl (Glucophage) 1,000 mg PO BIDMEALS [facility] Last Admin: 01/28/19 08:16 Dose: 1,000 mg Ondansetron HCl (Zofran) 4 mg IVPUSH ONETIME ONE Stop: 01/26/19 21:38 Last Admin: 01/26/19 22:05 Dose: 4 mg Pantoprazole Sodium (Protonix Iv) 40 mg IVPUSH ONETIME ONE Stop: 01/26/19 22:32 Last Admin: 01/26/19 22:54 Dose: 40 mg Pantoprazole Sodium (Protonix Iv) 40 mg IV Q12H [facility] Last Admin: 01/26/19 23:21 Dose: Not Given Potassium Chloride (Klor-Con M20) 40 meq PO ONETIME ONE Stop: 01/27/19 05:09 Last Admin: 01/27/19 05:25 Dose: 40 meq Potassium Chloride (Klor-Con M20) 40 meq PO ONETIME ONE Stop: 01/28/19 10:01 Last Admin: 01/28/19 11:14 Dose: 40 meq Potassium Chloride (Klor-Con M20) 40 meq PO ONETIME ONE Stop: 01/30/19 10:01 Last Admin: 01/30/19 10:42 Dose: 40 meq - Exam Quality Assessment: Reports: DVT Prophylaxis General: Reports: Alert, Oriented, Cooperative, No Acute Distress Lungs: Reports: Clear to Auscultation, Normal Respiratory Effort Cardiovascular: Reports: Regular Rate, Regular Rhythm, No Murmurs GI/Abdominal Exam: Soft, Non-Tender, No Organomegaly, No Distention Extremities: Non-Tender, No Pedal Edema
[2019-01-30] MEDS ORDERED: Ondansetron 4 MG Tab.DIS PO ONE (16:02)
[2019-01-30] MEDS ORDERED: LORazepam 0.5 MG Tab PO ONE (16:03)
== END 2019-01-30 17:40 | disposition home or self-care (01) | DRG 639 ==
LOC: JP.ED 20:54 → JP.ICU 23:03 → JP.MS 01-27 08:46 → JP.ICU 01-27 08:50 → JP.MS 01-29 15:24
PROVIDERS: ADMIT Family Medicine; ATTEND Hospitalist
DX: E11.10 Type 2 diabetes mellitus with ketoacidosis without coma (principal); E86.0 Dehydration; N28.9 Disorder of kidney and ureter, unspecified; R53.1 Weakness; R11.2 Nausea with vomiting, unspecified; R06.02 Shortness of breath; F41.9 Anxiety disorder, unspecified; A08.4 Viral intestinal infection, unspecified; Z79.4 Long term (current) use of insulin; Z98.49 Cataract extraction status, unspecified eye
CPT/HCPCS: 36415; 80053; 81001; 82800; 83605; 84484; 85025; 93005; 96361; 96374; 96375; 99285; C9113; J1815 ×2; J2060; J2405; J7030 ×2; 51702; 51798; 74177; 76705; 80048; 82803; 82962; 83036; 83735; 87086; 99284; A9270-GY; J0696; J1650; J2001; J3480; J7050; Q9967